=== PATIENT | male | born 1985 | race Caucasian/White ===

== ENCOUNTER 2024-01-21 08:37 | Day surgery (SDC) | payer MEDICAID ==
[2024-01-15 11:52] LABS: BASOPHILS % (AUTO) 0.9 % (0-1); EOSINOPHILS # (AUTO) 0.5 X10'3 (0-0.9); EOSINOPHILS % (AUTO) 12.3 % (0-6); LYMPHOCYTES # (AUTO) 1.1 X10'3 (1.1-4.8); LYMPHOCYTES % (AUTO) 29.3 % (21-51); MEAN CORPUSCULAR HEMOGLOBIN 30.8 PG (27.0-31.0); MEAN CORPUSCULAR HGB CONC 33.2 g/dL (33.0-36.5); MEAN CORPUSCULAR VOLUME 92.7 FL (78-98); MEAN PLATELET VOLUME 8.1 FL (7.4-10.4); MONOCYTES # (AUTO) 0.4 X10'3 (0-0.9); MONOCYTES % (AUTO) 10.5 % (2-12); NEUTROPHILS # (AUTO) 1.7 X10'3 (1.8-7.7); PRE OP HEMOGLOBIN 13.3 g/dL (14.0-17.9); PRE OP PLATELET COUNT 220 X10'3 (140-440); PRE OP WHITE BLOOD COUNT 3.7 10'3 (4.8-10.8); RED BLOOD COUNT 4.32 X10'6 (4.70-6.10); RED CELL DISTRIBUTION WIDTH 13.6 % (11.5-14.5)
[2024-01-15 12:04] LABS: ALBUMIN 3.6 G/DL (3.4-5.0); ALBUMIN/GLOBULIN RATIO 0.8 (1.1-1.5); ALKALINE PHOSPHATASE 90 IU/L (46-116); BLOOD UREA NITROGEN 18 MG/DL (7-18); BUN/CREATININE RATIO 18.8 (10.0-20.0); CALCIUM 8.3 MG/DL (8.5-10.1); CHLORIDE 106 MMOL/L (99-107); CREATININE 0.96 MG/DL (0.60-1.10); PRE OP ALT 49 U/L (30-65); PRE OP ANION GAP 10 (8-16); PRE OP AST 43 U/L (10-37); PRE OP BILIRUB, TOTAL 0.3 MG/DL (0.0-1.0); PRE OP GLUCOSE 97 MG/DL (70-104); PRE OP POTASSIUM 3.8 MMOL/L (3.4-5.1); PRE OP SODIUM 140 MMOL/L (135-145); TOTAL CARBON DIOXIDE 23.8 MMOL/L (24-32); eGFR 88 ML/MIN
[~2024-01-21] VITALS: Ht 172.7 cm; Wt 103.3 kg
[2024-01-21] VITALS (21 sets, daily range): BP systolic 125–161; BP diastolic 74–116; PULSE 54–86; RESP 10–18; TEMP 98.2; O2SAT 89–99
[2024-01-21] MEDS: cefazolin 2gm/D5W 100mL 100 ML IV ONE (05:30)
[~2024-01-21 08:37] MED LIST: NO HOME MEDS
[2024-01-21] MEDS: famotidine 20mg tablet PO ONE (09:13)
[2024-01-21] MEDS: ringers solution, lacted 1,000 ML IV SCH (09:14)
[2024-01-21 11:08] LABS: BILIRUBIN,URINE NEGATIVE (Neg); CLARITY,URINE CLEAR (Clear); COLOR,URINE STRAW (Yellow); GLUCOSE, URINE NEGATIVE (Neg); KETONES,URINE NEGATIVE (Neg); LEUKOCYTE ESTERASE ,URINE NEGATIVE (Neg); NITRITES, URINE NEGATIVE (Neg); OCCULT BLOOD,URINE NEGATIVE (Neg); PROTEIN,URINE NEGATIVE (Neg); UROBILINOGEN,URINE 0.2 E.U/dL (0.2-1.0)
[2024-01-21 11:09] LABS: UA COLLECTION TYPE NON-SPECIFIED
[2024-01-21] MEDS ORDERED: sevoflurane 250ml liquid IH ONE (12:24)
[2024-01-21] MEDS ORDERED: ondansetron/PF 4mg/2ml inj IV PRN (12:35)
[2024-01-21] MEDS ORDERED: morphine 2 MG/ML inj. syringe IV PRN (12:35)
[2024-01-21] MEDS ORDERED: labetalol 20mg/4ml (5mg/ml) syringe IV PRN (12:35)
[2024-01-21] MEDS ORDERED: ringers solution, lacted 1,000 ML IV SCH (12:35)
[2024-01-21] MEDS ORDERED: proCHLORperazine 10 MG/2 ml inj IV PRN (12:35)
[2024-01-21] MEDS ORDERED: hydrALAZINE 20mg/ml inj. IV PRN (12:35)
[2024-01-21] MEDS ORDERED: meperidine/PF 25mg/ml syringe IV PRN ×2 (12:35)
[2024-01-21] MEDS ORDERED: midazolam 1 mg/ML 2ml injection ONE (12:35)
[2024-01-21] MEDS ORDERED: fentaNYL /PF 50mcg/ml 5ml ampule ONE (12:42)
[2024-01-21] MEDS ORDERED: dexamethasone sod phosphate 4mg/ml inj. ONE (12:48)
[2024-01-21] MEDS ORDERED: rocuronium 10mg/ml inj IV ONE ×2 (12:48→14:18)
[2024-01-21] MEDS ORDERED: propofol inj 20 ML IV ONE (12:48)
[2024-01-21] MEDS ORDERED: ondansetron/PF 4mg/2ml inj ONE (12:48)
[2024-01-21] MEDS ORDERED: neostigmine methylsulfate 1 MG/ML 10ml vial ONE (12:49)
[2024-01-21] MEDS ORDERED: LIDOcaine 2% (20mg/ml) 5ml vial ONE (12:49)
[2024-01-21] MEDS ORDERED: glycopyrrolate 0.2mg/ml inj ONE (12:49)
[2024-01-21] MEDS: BUPIVAcaine 2.5mg/ml inj 50ml vial (contains preservative) ONE (12:51)
[2024-01-21] MEDS ORDERED: labetalol 20mg/4ml (5mg/ml) syringe IV ONE (13:22)
[2024-01-21] MEDS: meperidine/PF 25mg/ml syringe IV PRN (14:45)
[2024-01-21] MEDS: morphine 4 MG/ML inj SYRINge IV PRN (15:00)
[2024-01-21] MEDS: acetaminophen 1,000mg/100ml IV 100 ML IV ONE (15:01)
[2024-01-21] MEDS: ketorolac trometh. 30mg/ml inj. IV ONE (15:01)
[2024-01-21] MEDS: HYDROcodone/acetaminophen 10/325mg tab PO ONE (16:23)
[2024-01-21] MEDS: LidoCAINE 2% Topical Jelly 11mL syringe (UROJET) TOP ONE (19:30)
[2024-01-21] MEDS ORDERED: hydrALAZINE 20mg/ml inj. IV ONE (20:35)
== END 2024-01-21 20:18 | disposition home or self-care (01) ==
LOC: PAS 08:37
PROVIDERS: ATTEND Surgery
DX: K40.20 Bilateral inguinal hernia, without obstruction or gangrene, not specified as recurrent (principal); E66.9 Obesity, unspecified; Z68.34 Body mass index [BMI] 34.0-34.9, adult; Z82.3 Family history of stroke; Z82.49 Family history of ischemic heart disease and other diseases of the circulatory system
CPT/HCPCS: 36415; 49650; 80053; 81003; 82948; 85025; C1781; J0131; J0690; J1100; J1885; J2175; J2250; J2270; J2405; J2704; J2710; J3010; J3490; J7030; J7120; S2900; Z7506; Z7508; Z7512; A4215; A4314; A4618; C1758